=== PATIENT | female | born 1995 | race African-American/Black ===

== ENCOUNTER 2020-07-04 07:25 | Outpatient (CLI) | payer OTHER ==
[2020-07-04 17:19] LABS: SARS-CoV-2 MS2 Positive; SARS-CoV-2 N Gene Negative; SARS-CoV-2 S Gene Negative; SARS-CoV-2 by NAA Not Detected (NotDetected); SARS-CoV-2 orf1ab Negative
== END 2020-07-04 07:26 | disposition home or self-care (01) ==
LOC: LABSCS 07:25
PROVIDERS: ATTEND Obstetrics & Gynecology
DX: Z20.828 Contact with and (suspected) exposure to other viral communicable diseases (principal)
CPT/HCPCS: 87635; U0003

== ENCOUNTER 2020-07-07 09:50 | Inpatient (IN) | payer OTHER ==
[2020-07-07 10:26] VITALS: BMI 45.1
[2020-07-07] MEDS ORDERED: Promethazine HCl 25 MG/ML VIAL IM PRN ×2 (10:27→15:33)
[2020-07-07] MEDS ORDERED: Ondansetron PF 4 MG/2 ML Vial IVP PRN ×3 (10:27→19:21)
[2020-07-07] MEDS ORDERED: NS w/ Oxytocin 10 units 500 ML IV SCH ×2 (10:27)
[2020-07-07] MEDS ORDERED: Diphenoxylate HCl/Atropine Tablet PO PRN ×2 (10:27)
[2020-07-07] MEDS ORDERED: Ibuprofen 800 MG TAB PO PRN (10:27)
[2020-07-07] MEDS ORDERED: Butorphanol Tartrate 1 MG/ML VIAL SLOW IVP PRN (10:27)
[2020-07-07] MEDS ORDERED: Lidocaine 1% (PF) 30 ML VIAL SC PRN (10:27)
[2020-07-07] MEDS ORDERED: Acetaminophen 500 MG TAB PO PRN (10:27)
[2020-07-07] MEDS ORDERED: Zolpidem Tartrate 5 MG TAB PO PRN (10:27)
[2020-07-07] MEDS ORDERED: HYDROcodone/Acetaminophen 5/325 mg Tablet PO PRN ×2 (10:27)
[2020-07-07] MEDS ORDERED: Misoprostol 200 MCG TAB PR PRN ×2 (10:27→19:21)
[2020-07-07] MEDS ORDERED: Docusate 100 MG CAP PO PRN (10:27)
[2020-07-07] MEDS ORDERED: NS / Oxytocin 40 units/1000ml 1,000 ML IV PRN (10:27)
[2020-07-07] MEDS: Lactated Ringer's 1,000 ML IV SCH ×2 (10:41→19:58)
[2020-07-07] MEDS: hydrALAZINE 20 MG/ML VIAL SLOW IVP PRN ×2 (10:57→11:51)
[2020-07-07 11:00] LABS: Mean Corpuscular HGB CONC 33.4 g/dL (32.0-36.0); Mean Corpuscular Hemoglobin 31.3 pg (27.0-31.0); Mean Corpuscular Volume 93.9 fL (78.0-98.0); Mean Platelet Volume 10.8 fL (7.4-10.4); Platelet Count 153 thou/uL (130-400); RBC Distribution Width 12.4 % (11.5-14.5); Red Blood Cell (RBC) Count 4.13 mill/uL (4.20-5.40)
[2020-07-07] MEDS ORDERED: Labetalol 100 MG TAB PO SCH (11:30)
[2020-07-07 11:44] LABS: HBSAg Index 0.19 S/CO (0-0.99); Hep B Surf Ag Non-Reactive S/CO (NonReactive); Syphilis Antibody Nonreactive (Nonreactive); Syphilis Antibody Index 0.04 S/CO (<1.00 Non-Reactive)
[2020-07-07 12:12] LABS: ALT (SGPT) 26 U/L (8-55); AST (SGOT) 28 U/L (5-34); Albumin 3.3 g/dL (3.5-5.0); Alkaline Phosphatase 238 U/L (40-110); Anion Gap 15 mmol/L (10-20); BUN (Urea Nitrogen) 8 mg/dL (7.0-18.7); Bilirubin, Total 0.4 mg/dL (0.2-1.2); Calc. Creatinine Clearance 193 mL/min (70-130); Calcium 8.8 mg/dL (7.8-10.44); Carbon Dioxide 19 mmol/L (22-29); Chloride 107 mmol/L (98-107); Estimated GFR-MDRD Greater than 90; Potassium 4.2 mmol/L (3.5-5.1); Protein, Total 6.3 g/dL (6.0-8.3); Sodium 137 mmol/L (136-145); Uric Acid 5.1 mg/dL (2.6-6.0)
[2020-07-07] MEDS: Misoprostol 100 MCG TAB VAG SCH ×4 (12:17→19:58)
[2020-07-07] MEDS ORDERED: Labetalol HCl 100 MG/20 ML VIAL SLOW IVP PRN (12:30)
[2020-07-07 12:37] LABS: Glucose 58 mg/dL (70-105)
[2020-07-07] MEDS ORDERED: Magnesium Sulfate 20 gm/500 ml 20 GM/500 ML BAG IVPB SCH (13:30)
[2020-07-07] MEDS ORDERED: diphenhydrAMINE 50 MG/ML VIAL IVP PRN (15:33)
[2020-07-07] MEDS ORDERED: Promethazine HCl 25 MG SUPP PR PRN (15:33)
[2020-07-07] MEDS ORDERED: Naloxone HCl 0.4 mg/ml Vial IVP PRN ×2 (15:33)
[2020-07-07] MEDS ORDERED: Naloxone HCl 0.4 mg/ml Vial IV PRN (15:33)
[2020-07-07] MEDS ORDERED: Ondansetron HCl/PF 4 MG/2 ML Vial IVP PRN (15:33)
[2020-07-07] MEDS ORDERED: Communication Order-Pharmacy FS SCH (15:45)
[2020-07-07] MEDS ORDERED: Bicitra 30 ML UDCUP ONE (16:02)
[2020-07-07] MEDS ORDERED: Oxytocin 10 UNITS/ML VIAL ONE (16:48)
[2020-07-07] MEDS ORDERED: Ondansetron PF 4 MG/2 ML Vial ONE (16:48)
[2020-07-07] MEDS ORDERED: EPHEDRINE 25 MG/5 ML SYRINGE ONE (16:48)
[2020-07-07] MEDS ORDERED: Lanolin Ointment 7 GM TUBE TOP PRN (19:21)
[2020-07-07] MEDS ORDERED: hydrALAZINE 20 MG/ML VIAL SLOW IVP PRN (19:21)
[2020-07-07] MEDS ORDERED: Acetaminophen 325 MG TAB PO PRN ×2 (19:21→19:42)
[2020-07-07] MEDS ORDERED: Bisacodyl 10 MG SUPP PR PRN (19:21)
[2020-07-07] MEDS ORDERED: Simethicone Chewable 80 MG TAB PO PRN (19:21)
[2020-07-07] MEDS ORDERED: Adacel (T-DAP) 0.5 ML SYRINGE IM ONE (19:21)
[2020-07-07] MEDS ORDERED: Calcium Gluconate 4.6 MEQ in Sodium Chloride 0.9% 100 ML IVPB PRN (19:21)
[2020-07-07] MEDS ORDERED: diphenhydrAMINE 25 MG CAP PO PRN (19:21)
[2020-07-07] MEDS ORDERED: NS / Oxytocin 40 units/1000ml 1,000 ML IV SCH (19:30)
[2020-07-07] MEDS: Labetalol 100 MG TAB PO SCH (21:02)
[2020-07-07] MEDS: Magnesium Sulfate 20 gm/500 ml 20 GM/500 ML BAG IVPB SCH (21:56)
[2020-07-08] MEDS: Acetaminophen 650 MG Suppository PR SCH ×3 (03:09→11:44)
[2020-07-08] MEDS ORDERED: HYDROcodone/Acetaminophen 5/325 mg Tablet PO PRN ×4 (03:45→21:16)
[2020-07-08] MEDS ORDERED: Meperidine HCl/PF 25 MG/ML VIAL IM PRN ×2 (03:45→17:58)
[2020-07-08] MEDS ORDERED: Zolpidem Tartrate 5 MG TAB PO PRN ×2 (03:45→17:58)
[2020-07-08] MEDS: Ferrous Sulfate 325 MG TAB PO SCH ×3 (05:16→21:39)
[2020-07-08] MEDS: Lactated Ringer's 1,000 ML IV SCH ×2 (05:17→09:56)
[2020-07-08 06:01] LABS: Hemoglobin 12.2 g/dL (12.0-16.0); Mean Corpuscular HGB CONC 33.7 g/dL (32.0-36.0); Mean Corpuscular Hemoglobin 31.9 pg (27.0-31.0); Mean Corpuscular Volume 94.6 fL (78.0-98.0); Mean Platelet Volume 10.1 fL (7.4-10.4); Platelet Count 130 thou/uL (130-400); RBC Distribution Width 12.6 % (11.5-14.5); Red Blood Cell (RBC) Count 3.82 mill/uL (4.20-5.40); White Blood Cell (WBC) Count 10.3 thou/uL (4.8-10.8)
[2020-07-08] MEDS: Ketorolac Tromethamine 30 MG/ML VIAL IVP PRN ×2 (06:12→11:52)
[2020-07-08] MEDS: Magnesium Sulfate 20 gm/500 ml 20 GM/500 ML BAG IVPB SCH (07:57)
[2020-07-08] MEDS ORDERED: Prenatal Vitamin 1 TAB PO SCH (09:00)
[2020-07-08] MEDS: Labetalol 100 MG TAB PO SCH ×3 (11:44→21:04)
[2020-07-08] MEDS ORDERED: Adacel (T-DAP) 0.5 ML SYRINGE IM ONE (17:58)
[2020-07-08] MEDS ORDERED: Acetaminophen 325 MG TAB PO PRN (17:58)
[2020-07-08] MEDS ORDERED: hydrALAZINE 20 MG/ML VIAL SLOW IVP PRN (17:58)
[2020-07-08] MEDS ORDERED: Lanolin Ointment 7 GM TUBE TOP PRN (17:58)
[2020-07-08] MEDS ORDERED: diphenhydrAMINE 25 MG CAP PO PRN (17:58)
[2020-07-08] MEDS ORDERED: Bisacodyl 10 MG SUPP PR PRN (17:58)
[2020-07-08] MEDS ORDERED: Ondansetron PF 4 MG/2 ML Vial IVP PRN (17:58)
[2020-07-08] MEDS ORDERED: Simethicone Chewable 80 MG TAB PO PRN (17:58)
[2020-07-08] MEDS: Docusate Calcium (SURFAK) 240 MG CAP PO SCH (21:03)
[2020-07-08] MEDS: Ibuprofen 800 MG TAB PO SCH (21:03)
[2020-07-08] MEDS ORDERED: Ibuprofen 800 MG TAB PO SCH (22:00)
[2020-07-09] MEDS ORDERED: Sodium Chloride 0.9% 10 ML ONE ×2 (03:36→03:54)
[2020-07-09] MEDS: Ibuprofen 800 MG TAB PO SCH ×3 (05:10→21:09)
[2020-07-09] MEDS: Ferrous Sulfate 325 MG TAB PO SCH ×2 (08:21→21:09)
[2020-07-09] MEDS: Acetaminophen 650 MG Suppository PR SCH ×2 (09:22→09:28)
[2020-07-09] MEDS: Docusate Calcium (SURFAK) 240 MG CAP PO SCH ×4 (09:22→21:09)
[2020-07-09] MEDS: Prenatal Vitamin 1 TAB PO SCH (09:25)
[2020-07-09] MEDS: Labetalol 100 MG TAB PO SCH (09:25)
[2020-07-09] MEDS: Lactated Ringer's 1,000 ML IV SCH (09:28)
[2020-07-09] MEDS ORDERED: Labetalol 100 MG TAB PO SCH (22:15)
[2020-07-10] MEDS: Ibuprofen 800 MG TAB PO SCH (06:07)
[2020-07-10 08:16] VITALS: TEMP 97.8
[2020-07-10] MEDS: Prenatal Vitamin 1 TAB PO SCH (08:29)
[2020-07-10] MEDS: Docusate Calcium (SURFAK) 240 MG CAP PO SCH (08:30)
[2020-07-10] MEDS: Ferrous Sulfate 325 MG TAB PO SCH (08:30)
[2020-07-10] MEDS ORDERED: Labetalol 100 MG TAB PO SCH (09:00)
[2020-07-10 12:49] VITALS: BP 140/68
--- NOTE | 2020-07-10 18:00 | OP ---
DATE OF PROCEDURE: 07/07/2020 RESIDENT SURGEON: Roberta Griffin, Family Medicine PGY-2. PREOPERATIVE DIAGNOSES: 1. Term intrauterine at 39-4/7 weeks. 2. Severe preeclampsia. 3. Remote from delivery. POSTOPERATIVE DIAGNOSES: 1. Term intrauterine at 39-4/7 weeks. 2. Severe preeclampsia. 3. Remote from delivery. PROCEDURE PERFORMED: Primary low transverse section. ANESTHESIA: Spinal catheterization. FINDINGS: 1. Severe preeclampsia with blood pressures in the 170 to 180 over 100 to 110 range, proteinuria. 2. Vigorous female , 6 pounds 4 ounces, Apgars 8 and 9. 3. Normal uterus, tubes, and ovaries. COMPLICATIONS: None. SPECIMENS REMOVED: Cord blood. BLOOD LOSS: EBL, 600 mL. (QBL pending). HISTORY AND INDICATIONS: Ms. Monie Olmos is a pleasant 25yo black female, G1, P0, who was followed my clinic for obstetric care. Monie presented to the office today for a visit and testing. She had been followed closely for elevating blood pressures as well as a small baby with borderline SGA. Her blood pressures today initially were 180/110. We performed an NST, and her blood pressures continued to be elevated in the 160 to 180 over 100 to 110 range. She was also noted to have 2+ protein on urine dip here in the clinic. Cervical examination revealed the patient to be 1 cm dilated, 50% effaced, and -3 station. Baby was measuring at the 15th percentile for growth. She was also noted to have a grade 3 placenta on ultrasound today. Fluid was normal. The patient was sent to Labor and Delivery for serial blood pressures and laboratory studies. Her blood pressure remained extremely high with multiple measurements in the 180 to 190 over 110 range. Because the patient was remote from delivery, decision was made to proceed with primary low-transverse section. The patient and her mother were counseled extensively. Questions answered to their satisfaction. DESCRIPTION OF PROCEDURE: After consent and counseling as noted above, the patient was taken to the operating room, and adequate level of anesthesia was obtained via spinal catheterization. The patient was prepped and draped in usual sterile fashion for abdominal surgery. A Hough was placed in the bladder, which was noted to be draining clear urine. A team time-out was performed per protocol. Attention was then turned to performing the primary low-transverse section. A Pfannenstiel incision was made, carried sharply to the fascia, which was also sharply incised. The midline was identified, and the rectus muscles were retracted laterally. The abdominal peritoneal cavity was entered with usual safeguards carried out. A retractor was placed, and a bladder flap was created on the vesicouterine peritoneum. A bladder blade was then placed. A low-transverse incision was made on the well-developed lower uterine segment. Upon entering the amniotic sac, copious amount of clear amniotic fluid was visualized. The was noted to be vertex presentation in the occiput anterior position, still high in the pelvis. Head was delivered. Baby was bulb suctioned on the abdomen. Shoulders and body were then delivered in an atraumatic fashion. The cord was doubly clamped and cut. The infant was handed to the Pediatric Team in attendance for the delivery. The infant was a vigorous viable female, weighing 6 pounds 4 ounces with Apgars of 8 and 9 obtained at 1 and 5 minutes respectively. Cord blood was obtained. The placenta was manually removed from the uterus. The uterus was exteriorized, and good tone was noted. The uterine cavity was cleared of any remaining clot and fluid. The low-transverse incision was closed with a running locking ligature of #1 chromic. A 2nd imbricating layer was placed to facilitate strength and hemostasis. The vesicouterine peritoneum was reapproximated to the lower segment with a running ligature of 2-0 Monocryl suture. Good hemostasis was noted. The posterior cul-de-sac and gutters were cleared of clot and fluid. The pelvis was carefully examined. Of note, the patient was noted to have an extremely prominent sacrum with an android type pelvis. The uterus was returned to the abdomen. Lap, sponge, and needle counts were correct. The incision was carefully inspected, noted to be hemostatic. The peritoneum was then closed with a running ligature of 2-0 Vicryl. The rectus muscles were reapproximated in the midline with interrupted ligatures of both 2-0 Vicryl and #1 chromic suture. The fascia was closed with 2 ligatures of 0 Vicryl suture, which was tied in the midline. Good fascial integrity was appreciated. The incision was then irrigated with copious amount of warm normal saline. Hemostasis was obtained with Bovie cauterization. The subcutaneous tissue was closed with interrupted ligatures of 2-0 plain. The subcutaneous tissue was then closed with multiple ligatures of 2-0 plain. The skin was then closed with a subcuticular stitch of 4-0 Monocryl and dressed with Dermabond. A pressure dressing and ice packs were subsequently placed. Lap, sponge, and needle counts were correct x3. Estimated blood loss during the surgical procedure, 600 mL. The patient was taken to recovery room in good condition. Immediately following surgery, the patient and family were made aware of the surgical procedure and operative findings. Questions were answered to their satisfaction. Job ID: [id number] [id number]
== END 2020-07-10 13:56 | disposition home or self-care (01) | DRG 788 ==
LOC: L&D 09:50 → 3SE 07-08 19:44 → EDSTATUS 07-16 14:17
PROVIDERS: ADMIT Obstetrics & Gynecology; ATTEND Obstetrics & Gynecology
PROC: 10D00Z1 Extraction of Products of Conception, Low, Open Approach (ICD-10-PCS; principal; 2020-07-07)
DX: O13.4 Gestational [pregnancy-induced] hypertension without significant proteinuria, complicating childbirth (principal); O14.14 Severe pre-eclampsia complicating childbirth; Z37.0 Single live birth; Z3A.39 39 weeks gestation of pregnancy
CPT/HCPCS: 36415; 51702; 80053; 82570; 83735; 84156; 84550; 85027; 86780; 86850; 86900; 86901; 87340; J0360; J0690; J1885; J2270; J2405; J2590; J3475